=== PATIENT | female | born 1990 | race Two or more races ===

== ENCOUNTER 2020-09-21 09:44 | Emergency (ER) | payer MEDICAID, OTHER ==
[~2020-09-21] VITALS: Ht 172.7 cm; Wt 61.2 kg
[2020-09-21 12:24] LABS: Basophils # (auto) 0 10 ^3/uL (0-0.2); Basophils % (auto) 0.3 % (0.0-2.0); Eosinophils # (auto) 0 10 ^3/uL (0-0.8); Eosinophils % (auto) 0.2 % (0.0-7.0); Lymphocytes # (auto) 1.1 10 ^3/uL (0.4-5.4)
[2020-09-21 12:26] LABS: Hematocrit 18.8 % (36.0-46.0); Lymphocytes % (auto) 12.7 % (10.0-50.0); Mean Corpuscular Hgb Conc. 32.4 g/dL (32.0-36.0); Mean Corpuscular Volume 77.2 fL (80.0-100.0); Monocytes # (auto) 0.7 10 ^3/uL (0-1.3); Monocytes % (auto) 7.9 % (0.0-12.0); Neutrophils # (auto) 6.9 10 ^3/uL (1.6-8.6); Neutrophils % (auto) 78.9 % (37.0-80.0); Platelet Count (auto) 415 10^3/uL (140-450); Red Blood Cells 2.44 10^6/uL (4.0-5.20); Red Cell Distribution Width 17.7 % (11.8-14.3); White Blood Cell 8.7 10^3/uL (4.4-10.8)
[2020-09-21 12:30] LABS: Hemoglobin 6.1 g/dL (12.2-16.2)
[2020-09-21 12:46] LABS: Albumin 3.7 g/dL (3.4-5.0); Calcium 8.6 mg/dL (8.5-10.1); Potassium 3.2 mmol/L (3.5-5.1)
[2020-09-21 12:49] LABS: BUN/Creatinine Ratio 12.2; Bilirubin, Total 0.7 mg/dL (0.2-1.0); Total Protein 6.9 g/dL (6.4-8.2)
[2020-09-21] MEDS ORDERED: POTASSIUM EFFERVESENT TAB 25 MEQ PO ONE (16:15)
[2020-09-21 20:59] VITALS: BP 106/69
[2020-09-21 21:17] VITALS: BP 105/63
[2020-09-21] MEDS ORDERED: diphenhdrAMINE HCL 50 MG/1 ML VL IV ONE (22:15)
[2020-09-21 22:49] VITALS: BP 110/57
[2020-09-21 23:40] VITALS: BP 108/68
[2020-09-22 01:40] VITALS: BP 108/65
[2020-09-22 02:07] LABS: Hematocrit 24.4 % (36.0-46.0)
== END 2020-09-22 03:42 | disposition home or self-care (01) ==
LOC: ER 09:44
DX: N93.9 Abnormal uterine and vaginal bleeding, unspecified (principal); D64.9 Anemia, unspecified
CPT/HCPCS: 36415; 36430; 80053; 85014; 85018; 86850; 86900; 86901; 86920; 96374; 99285; J1200; P9016; 85025